=== PATIENT | male | born 1975 | race Caucasian/White ===

== ENCOUNTER → 2020-09-25 12:35 | Outpatient (BNVA) | payer SELFPAY | PROVIDERS: PCP Internal Medicine; Visit Provider Internal Medicine | DX: Z02.79 Encounter for issue of other medical certificate (principal) ==

== ENCOUNTER 2021-04-07 10:18 | Emergency (ER) | payer OTHER, SELFPAY ==
[2021-04-07 11:03] VITALS: BP 129/93; PULSE 95; RESP 18; TEMP 36.5; O2SAT 98; BMI 39.9
[2021-04-07] MEDS: predniSONE 20 MG TABLET 60 MG PO (12:37)
[2021-04-07] MEDS: Ketorolac Tromethamine 60 MG/2 ML VIAL IM (12:38)
--- NOTE | 2021-04-07 13:08 | ED.BACK ---
HPI - Back Pain/Injury General Chief Complaint: Back Pain/Injury Stated Complaint: Back pain Time Seen by Provider: 04/07/21 12:25 Source: patient Mode of arrival: ambulatory Limitations: no limitations History of Present Illness HPI Narrative: Patient presents to ED for low back pain since injury 2019. Patient states history of back fusion surgery with rods. Patient was informed last year he will need another surgery for possible laminectomy of his spine but due to his job worker's Comp figthing his insurance and would not approve of surgery which was proven that he needed for his spine. Patient states pain since thanksgiving. Patient states during thanksgiving while he was standing he had back pain that was so severe causes leg to give out and he fell to the ground. Patient states since incident he has been walking normally but with pain. Patient denies any urinary or bowel incontinence. Patient states no dysuria, nausea, hematuria, vomiting, flank pain, fever, or chills. Patient states no new trauma. Patient requesting pain medication. Patient states history of disc herniation/bulging. Patient states due to workman comp issues with his insurance he has not been given any pain medication. Patient states no relief with Tylenol. Related Data Previous Rx's Medication Instructions Recorded gabapentin 300 mg capsule 300 mg PO TID 7 Days #21 cap 04/07/21 ketorolac 10 mg tablet 10 mg PO QID PRN 5 Days #20 tab 04/07/21 oxycodone-acetaminophen 5 mg-325 1 tab PO TID PRN #9 tab 04/07/21 mg tablet (Percocet) prednisone 20 mg tablet 60 mg PO DAILY 5 Days #15 tab 04/07/21 Allergies Allergy/AdvReac Type Severity Reaction Status Date / Time No Known Allergies Allergy Unverified 01/10/20 19:37 [No Known Allergies*] Review of Systems Review of Systems: Yes all other systems are reviewed and are negative Constitutional: Constitutional: Reports as per HPI and Reports no additional constitutional complaints Eyes: Eyes: Reports as per HPI and Reports no additional eye complaints ENT: Reports system reviewed and no additional complaints, except as documented and Reports as per HPI Cardiovascular: Cardiovascular: Reports as per HPI and Reports no additional cardiovascular complaints Respiratory: Respiratory: Reports as per HPI and Reports no additional respiratory complaints Gastrointestinal: Gastrointestinal: Reports as per HPI and Reports no additional gastrointestinal complaints Genitourinary: Genitourinary: Reports no additional male genitourinary complaints and Reports as per HPI Musculoskeletal: Musculoskeletal: Reports no additional musculoskeletal complaints, Reports as per HPI and Reports back pain Neurologic: Reports system reviewed and no additional complaints, except as documented and Reports as per HPI Psychiatric: Psychiatric: Reports no additional psychiatric complaints and Reports as per HPI [facility] Social History Social History Advance Directives: No Advance Directives Information Provided: Yes Physical Exam Vital Signs: Vital Signs: Last Vital Signs Temp 97.8 F 04/07/21 13:26 Pulse 92 04/07/21 13:26 Resp 18 04/07/21 13:26 BP 130/88 04/07/21 13:26 Pulse Ox 98 04/07/21 13:26 BMI result Body Mass Index 39.9 Const: General: cooperative, healthy appearing, comfortable, no acute distress, well developed, alert, awake and Physically active Orientation/consciousness: patient oriented x3 HENMT: Head: Yes normal to inspection, Yes No palpable skull fracture present, Yes normocephalic, Yes atraumatic and No abrasion Eyes: General: appearance normal, both eyes and all related structures Neck: Neck: Yes normal visual inspection, Yes full ROM, Yes no lymphadenopathy, Yes no meningeal signs, Yes trachea midline, Yes supple, No anterior neck swelling and No tender Chest: Chest palpation & inspection: normal inspection of the chest and normal palpation of entire chest wall Resp: Effort & Inspection: normal respiratory effort and able to speak in complete sentences Auscultation: clear to auscultation bilaterally Cardio: Jugular venous distension: no JVD Heart sounds: S1 normal heart sound present and S2 normal heart sound present GI: Inspection: Yes normal to inspection and No abdominal wall ecchymosis Palpation (GI): Soft to palpation, not firm, nontender, no guarding and not rigid : General: No CVA tenderness and Yes no CVA tenderness Back/Spine/Pelvis: Back: no CVA tenderness, No CVA tenderness and back tenderness (L5/S1. Negative for any deformity or crepitus) Skin: General skin exam: no rashes or lesions noted and elasticity normal Neuro: General: patient oriented x3, gait normal, no meningeal signs and CN's II-XI intact bilaterally Cranial nerves: Yes CN's II-XII intact bilaterally Extrem: General: Yes normal to inspection and Yes full ROM Psych: Appearance: grossly normal, well kempt and not disheveled Course Course Course Narrative: Patient walking around in his room on his own. Patient given Toradol and prednisone. Reevaluation(s) Reevaluation #1: Patient will be discharged with pain medications. Patient informed to follow-up with primary care provider to see if they could fix worker's comp insurance issues to approve of surgery for his spine. Presently not suspecting any cord compression. Patient denies any HIV, hepatitis-C, IV drug use. Not suspect epidural abscess. Patient given referral to [facility] to see if they could help with insurance issues to approve surgery Time: 13:14 MDM - Back Pain/Injury MDM Narrative Medical decision making narrative: Lumbar radiculopathy, chronic back Discharge Plan Discharge Clinical Impression: Lumbar radiculopathy, Chronic back pain Patient Disposition: Home, Self-Care Instructions: Lumbar Radiculopathy (ED), Chronic Back Pain (DC) Additional Instructions: Recommend primary care provider to work patient's insurance to fix worker's comp issue so patient could could have spinal surgery. Meantime primary care provider should refer patient to physical therapy or pain management. Also primary care provider should order repeat MRI if indicated. Return to the ED for any urinary/bowel incontinence, severe back pain, paralysis of lower extremity, tingling of lower extremity, nausea, vomiting, flank pain, fever, chills, dysuria, hematuria, or any other concerning symptoms. Prescriptions: New oxycodone-acetaminophen [Percocet] 5-325 mg tablet 1 tab PO TID PRN (Reason: pain) Qty: 9 RF: 0 prednisone 20 mg tablet 60 mg PO DAILY 5 Days Qty: 15 RF: 0 ketorolac 10 mg tablet 10 mg PO QID PRN (Reason: pain) 5 Days Qty: 20 RF: 0 gabapentin 300 mg capsule 300 mg PO TID 7 Days Qty: 21 RF: 0 [facility]errals: [facility] - 2 days (Chronic back pain due to work injury in 2019. Back pain caused leg to give out and caused him to fall during thanksgiving. Patient has worker's compensation issue which is delaying his surgery.) Interventions: ED Discharge Assessment Last Done: 04/07/21 13:59 Discharge Date/Time: 04/07/21 14:00 Print Language: Swazi
[2021-04-07 13:26] VITALS: BP 130/88; PULSE 92; RESP 18; TEMP 36.6; O2SAT 98
== END 2021-04-07 14:00 | disposition home or self-care (01) ==
PROVIDERS: Emergency Provider Emergency Medicine; PCP Internal Medicine
DX: Z04.2 Encounter for examination and observation following work accident (principal); M54.16 Radiculopathy, lumbar region; M54.50 Low back pain, unspecified
CPT/HCPCS: 96372; 99284; J1885

== ENCOUNTER 2021-04-14 14:24 | Emergency (ER) | payer MEDICAID, SELFPAY ==
--- NOTE | ~2021-04-14 | CT_ITS ---
EXAMINATION: CT ABDOMEN AND PELVIS WITH CONTRAST CLINICAL INFORMATION: GI bleed. COMPARISON: None. TECHNIQUE: Multidetector volumetric images were obtained from the superior aspect of the liver through the pubic symphysis following administration 85 mL of Omnipaque 350 intravenous contrast. Sagittal and coronal reformatted images were obtained on the technologist's workstation. Oral contrast: No This CT examination was performed using dose optimization techniques as appropriate, variously including the following: *Automated exposure control *Adjustment of mA and/or kV according to patient size (this includes techniques or standardized protocols for targeted exams where dose is matched to indication/reason for exam; i.e. extremities or head) *Use of iterative reconstruction technique DLP: 1247 mGy-cm FINDINGS: LUNG BASES: No focal airspace opacities or pleural effusions. LIVER, GALLBLADDER, AND BILIARY TREE: There is significantly decreased attenuation of the liver parenchyma when compared to the attenuation of the spleen suggesting the presence of hepatic steatosis. Otherwise, the liver is normal in size and shape without focal abnormalities. The gallbladder is unremarkable with no evidence of radiopaque gallstones, gallbladder wall thickening, or obvious pericholecystic inflammatory changes. PANCREAS: Unremarkable. SPLEEN: Unremarkable. ADRENAL GLANDS: Unremarkable. KIDNEYS AND URETERS: The kidneys are normal in size, shape, and attenuation. No hydronephrosis, hydroureter, or calculi seen. No perinephric stranding. BLADDER: Unremarkable. GASTROINTESTINAL TRACT: The stomach and small bowel are nondilated. No active inflammatory bowel changes or evidence of obstruction. Normal appendix. No definite pooling of contrast to suggest the presence of a GI bleeding. No retroperitoneal hematomas. ABDOMINAL WALL: No significant hernia is appreciated. LYMPH NODES: No lymphadenopathy by size criteria. VASCULAR: Mild atherosclerotic disease. The abdominal aorta is of normal diameter. PELVIC VISCERA: Unremarkable. OSSEOUS STRUCTURES: No acute or suspicious osseous abnormalities. Intact posterior fusion hardware and interdisc spacer at L3-L4. CT/CT abdomen pelvis w con IMPRESSION: No acute intra-abdominal or pelvic abnormalities. Specifically, there is no definite pooling of contrast within the lumen of the bowel to suspect a gastrointestinal bleed. Although, the entirety of the small bowel and distal colon are under distended which limits assessment of their lumen and wall and if indicated correlation with endoscopy should be obtained. Hepatic steatosis.
[2021-04-14 15:26] VITALS: BP 151/87; PULSE 87; RESP 16; TEMP 36.9; O2SAT 97; BMI 39.9
[2021-04-14 15:43] LABS: MANUAL DIFF FLAG NO
[2021-04-14 15:50] LABS: Basophils Percent Auto 0.5 % (0-2); Eosinophils Absolute Auto 0.1 X10*3/uL (0.0-0.4); Eosinophils Percent Auto 1.4 % (0-4); Hemoglobin 15.1 g/dl (14.0-18.0); Imm Gran Abs Auto 0.03 X10*3/uL (0.00-0.03); Imm Gran Pct Auto 0.3 % (0.0-0.4); Lymphocytes Absolute Auto 1.8 X10*3/uL (1.2-4.9); Lymphocytes Percent Auto 20.1 % (20-40); Mean Corpuscular HGB Conc 33.6 g/dl (31.0-36.0); Mean Corpuscular Hemoglobin 32.1 pg (27.0-33.0); Mean Corpuscular Volume 95.5 fL (80.0-98.0); Mean Platelet Volume 9.6 fL (9.4-12.4); Monocytes Absolute Auto 0.7 X10*3/uL (0.1-1.2); Monocytes Percent Auto 7.9 % (2-11); Neutrophils Absolute Auto 6.1 x10*3/uL (2.0-8.3); Neutrophils Percent Auto 69.8 % (45-73); Platelet Count 180 X10*3/uL (160-400); Red Blood Count 4.71 X10*6/uL (4.60-5.80); Red Cell Distribution Width 13.5 % (11.0-16.0); White Blood Count 8.7 X10*3/uL (4.8-10.8)
[2021-04-14 16:07] LABS: Alanine Aminotransferase 76 U/L (0-40); Albumin Level 4.4 g/dL (3.5-5.0); Alkaline Phosphatase 53 U/L (39-117); Anion Gap 13 (12-20); Aspartate Amino Transferase 37 U/L (5-37); Bilirubin Direct 0.2 mg/dL (0.0-0.5); Bilirubin Total 0.6 mg/dL (0.0-1.0); Blood Urea Nitrogen 23 mg/dL (9-16); Calcium 10.2 mg/dL (8.4-10.2); Carbon Dioxide 27 mmol/L (22-29); Chloride 103 mmol/L (96-108); Creatinine Clr Calc Pharmacy 128.8; Estimated Glomerular Filt Rate > 60; Glucose Random 130 mg/dL (60-115); Potassium 4.8 mmol/L (3.3-5.1); Sodium 138 mmol/L (135-145); Total Protein 7.3 g/dL (6.5-8.0)
--- NOTE | 2021-04-14 19:49 | ED.GIBLEED ---
HPI - GI Bleed General Chief complaint: GI Bleed Stated complaint: Rectal bleed Source: patient Mode of arrival: ambulatory Limitations: no limitations History of Present Illness HPI Narrative: 46-year-old male presents with bright red blood per rectum and abdominal pain for the past day. Does not report constipation or melena stools. Does not report any other symptoms at this time. MD complaint: blood on toilet paper Onset (ago): day(s) (1) Pain Consistency: constant Severity: moderate Relieving factors: none Exacerbating factors: bowel movement and movement Associated symptoms: abdominal pain Treatments Prior to Arrival: none Related Data Previous Rx's Medication Instructions Recorded gabapentin 300 mg capsule 300 mg PO TID 7 Days #21 cap 04/07/21 ketorolac 10 mg tablet 10 mg PO QID PRN 5 Days #20 tab 04/07/21 oxycodone-acetaminophen 5 mg-325 1 tab PO TID PRN #9 tab 04/07/21 mg tablet (Percocet) prednisone 20 mg tablet 60 mg PO DAILY 5 Days #15 tab 04/07/21 Allergies Allergy/AdvReac Type Severity Reaction Status Date / Time No Known Allergies Allergy Unverified 01/10/20 19:37 [No Known Allergies*] Review of Systems Review of Systems: Constitutional: No Fever, No Chills ENT/Mouth: No Ear Pain, No Hoarseness, No sore throat Eyes: No Eye Pain, No Swelling, No Redness, No Foreign Body Cardiovascular: No Chest Pain, No SOB Respiratory: No Cough, No Dyspnea Gastrointestinal: No Nausea, No Vomiting, No Diarrhea, positive abdominal Pain, positive hematochezia Genitourinary: No Dysuria, No Hematuria Musculoskeletal: positive chronic back pain, No Myalgias, No Joint Swelling Skin: No Skin lacerations, No rash Neuro: No Weakness, No Numbness, No Paresthesias, No Loss of Consciousness, No Dizziness, No Headache Psych: No Anxiety/Panic, No Depression Heme/Lymph: no easy bruising, no Lymphadenopathy Endocrine: No Polyuria, No Polydipsia Yes all other systems are reviewed and are negative [facility] Past Medical History Attestation statement: The following information was validated with the patient. Source: old records reviewed Medical History Gout Social History Social History Advance Directives: No Advance Directives Information Provided: Yes Physical Exam Vital Signs: Vital Signs: Last Vital Signs Temp 98.5 F 04/14/21 15:26 Pulse 81 04/14/21 21:19 Resp 20 04/14/21 21:19 BP 131/87 04/14/21 21:19 Pulse Ox 97 04/14/21 21:19 BMI result Body Mass Index 39.9 Appearance: Alert. Oriented X3. No acute distress. Eyes: Pupils equal, round and reactive to light. Sclera nonicteric. ENT: Pharynx normal. Moist mucous membranes. Neck: Normal inspection. Neck supple. CVS: Normal heart rate and rhythm. Pulses normal. Respiratory: No respiratory distress. Breath sounds normal. Abdomen: Soft and diffusely tender without rigidity or rebound. Obese. Skin: Skin warm and dry. Normal skin color. Normal skin turgor. Extremities: No lower extremity edema. Gait well-balanced well coordinated. Brisk capillary refill to all extremities. Neuro: No motor deficit. No sensory deficit. Cranial nerves 2-12 intact. Course Course Course Narrative: 46-year-old male presents with abdominal pain and bright red blood per rectum. States that he was given prednisone and oxycodone last week and noted blood in his stool shortly after. He is being treated for chronic back pain. Does not report any constipation. Denies family history of colon cancer. Does not report any melena or abnormal weight loss, states have weight gain. No history of PUD but does report heavy NSAID use because of chronic back pain. Rectal exam completed, does have external and internal hemorrhoids. No fissures noted. Good rectal tone. 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 Will order CT abdomen pelvis with contrast. BUN is elevated at 23. No prior lab values. 9:[address] scan abdomen pelvis negative for acute findings requiring emergent intervention. Will have patient follow up with Gastroenterology as an outpatient. Patient verbalized understanding of and agrees plan of care discharge home. MDM - GI Bleed Differential Diagnosis Differential diagnosis: Likely hemorrhoids, esophageal varices, gastritis, Upper gastrointestinal hemorrhage, hematochezia, melena and anal fissure Medical Records Attestation: I reviewed the patient's medical records. Lab Data Attestation: I reviewed the patient's lab results. Result diagrams: 04/14/21 15:36 04/14/21 15:36 Labs: Lab Results 04/14/21 04/14/21 04/14/21 Range/Units 15:36 15:36 21:35 WBC 8.7 (4.8-10.8) X10*3/uL RBC 4.71 (4.60-5.80) X10*6/uL Hgb 15.1 (14.0-18.0) g/dl Hct 45.0 (42.0-52.0) % MCV 95.5 (80.0-98.0) fL MCH 32.1 (27.0-33.0) pg MCHC 33.6 (31.0-36.0) g/dl RDW 13.5 (11.0-16.0) % Plt Count 180 (160-400) X10*3/uL MPV 9.6 (9.4-12.4) fL Immature Gran % (Auto) 0.3 (0.0-0.4) % Neut % (Auto) 69.8 (45-73) % Lymph % (Auto) 20.1 (20-40) % [place] % (Auto) 7.9 (2-11) % Eos % (Auto) 1.4 (0-4) % Baso % (Auto) 0.5 (0-2) % Lymph # (Auto) 1.8 (1.2-4.9) X10*3/uL [place] # (Auto) 0.7 (0.1-1.2) X10*3/uL Eos # (Auto) 0.1 (0.0-0.4) X10*3/uL Baso # (Auto) 0.0 (0.0-0.2) X10*3/uL Abs Immat Gran (auto) 0.03 (0.00-0.03) X10*3/uL Absolute Neuts (auto) 6.1 (2.0-8.3) x10*3/uL Absolute Nucleated RBC 0.000 (0.0-0.012) X10*3/uL Nucleated RBC % (auto) 0.0 (0.0-0.2) /100WBC Sodium 138 (135-145) mmol/L Potassium 4.8 (3.3-5.1) mmol/L Chloride 103 (96-108) mmol/L Carbon Dioxide 27 (22-29) mmol/L Anion Gap 13 (12-20) BUN 23 H (9-16) mg/dL Creatinine 1.09 (0.5-1.4) mg/dL Estim Creat Clear Calc 128.8 Estimated GFR > 60 Random Glucose 130 H (60-115) mg/dL Calcium 10.2 (8.4-10.2) mg/dL Total Bilirubin 0.6 (0.0-1.0) mg/dL Direct Bilirubin 0.2 (0.0-0.5) mg/dL AST 37 (5-37) U/L ALT 76 H (0-40) U/L Alkaline Phosphatase 53 (39-117) U/L Total Protein 7.3 (6.5-8.0) g/dL Albumin 4.4 (3.5-5.0) g/dL Stool Occult Blood POSITIVE (NEGATIVE) Imaging Data CT abdomen pelvis with contrast: Attestation: I personally reviewed and interpreted this imaging study as follows: Radiologist's impression: EXAMINATION: CT ABDOMEN AND PELVIS WITH CONTRAST? CLINICAL INFORMATION: GI bleed.? COMPARISON: None.? TECHNIQUE: Multidetector volumetric images were obtained from the superior aspect of the liver through the pubic symphysis following administration 85 mL of Omnipaque 350 intravenous contrast. Sagittal and coronal reformatted images were obtained on the technologist's workstation.? Oral contrast: No This CT examination was performed using dose optimization techniques as appropriate, variously including the following: *Automated exposure control *Adjustment of mA and/or kV according to patient size (this includes techniques or standardized protocols for targeted exams where dose is matched to indication/reason for exam; i.e. extremities or head) *Use of iterative reconstruction technique DLP: 1247 mGy-cm FINDINGS: LUNG BASES: No focal airspace opacities or pleural effusions.? LIVER, GALLBLADDER, AND BILIARY TREE: There is significantly decreased attenuation of the liver parenchyma when compared to the attenuation of the spleen suggesting the presence of hepatic steatosis. Otherwise, the liver is normal in size and shape without focal abnormalities. The gallbladder is unremarkable with no evidence of radiopaque gallstones, gallbladder wall thickening, or obvious pericholecystic inflammatory changes.? PANCREAS: Unremarkable.? SPLEEN: Unremarkable.? ADRENAL GLANDS: Unremarkable.? KIDNEYS AND URETERS: The kidneys are normal in size, shape, and attenuation. No hydronephrosis, hydroureter, or calculi seen. No perinephric stranding. ? BLADDER: Unremarkable.? GASTROINTESTINAL TRACT: The stomach and small bowel are nondilated. No active inflammatory bowel changes or evidence of obstruction. Normal appendix. No definite pooling of contrast to suggest the presence of a GI bleeding. No retroperitoneal hematomas.? ABDOMINAL WALL: No significant hernia is appreciated.? LYMPH NODES: No lymphadenopathy by size criteria. VASCULAR: Mild atherosclerotic disease. The abdominal aorta is of normal diameter. PELVIC VISCERA: Unremarkable.? OSSEOUS STRUCTURES: No acute or suspicious osseous abnormalities. Intact posterior fusion hardware and interdisc spacer at L3-L4.? CT/CT abdomen pelvis w con IMPRESSION: No acute intra-abdominal or pelvic abnormalities. Specifically, there is no definite pooling of contrast within the lumen of the bowel to suspect a gastrointestinal bleed. Although, the entirety of the small bowel and distal colon are under distended which limits assessment of their lumen and wall and if indicated correlation with endoscopy should be obtained. ? Hepatic steatosis. Discharge Plan Discharge Clinical Impression: Hematochezia Hemorrhoids Qualifiers: Hemorrhoid type: unspecified Qualified Code(s): K64.9 - Unspecified hemorrhoids Patient Disposition: Home, Self-Care Instructions: Hemorrhoids (ED), Rectal Bleeding (ED) Additional Instructions: You were evaluated for bright red blood per rectum. CT scan of abdomen and pelvis with contrast is negative for acute findings requiring emergent intervention. You must follow-up with Gastroenterology for further investigation of rectal bleeding. I referred you to Dr. Roberts. Please call and request an appointment. Please keep your appointment with primary care tomorrow. Please update them about your bright red blood per rectum and your referral to Gastroenterology. You do have internal and external hemorrhoids. You may consider taking stool softeners while on Percocet. Please discontinue use of NSAIDs ([id number]) and naproxen (Aleve). Thank you for choosing this emergency department for evaluation. Please follow-up with primary care physician as needed. Return to the emergency department for any new, concerning, or worsening symptoms. Prescriptions: No Action oxycodone-acetaminophen [Percocet] 5-325 mg tablet 1 tab PO TID PRN (Reason: pain) Qty: 9 RF: 0 prednisone 20 mg tablet 60 mg PO DAILY 5 Days Qty: 15 RF: 0 ketorolac 10 mg tablet 10 mg PO QID PRN (Reason: pain) 5 Days Qty: 20 RF: 0 gabapentin 300 mg capsule 300 mg PO TID 7 Days Qty: 21 RF: 0 Referrals: Brittany Roberts MD [Physician] - 2 days (Bright red blood per rectum.) Interventions: ED Discharge Assessment Last Done: 04/14/21 21:42 Discharge Date/Time: 04/14/21 21:44
--- NOTE | 2021-04-14 19:56 | PC.NURSE ---
ED provider at bed side. This RN present in the room during rectal exam. Stool sample collected from PT.
[2021-04-14 20:15] VITALS: BP 144/90; PULSE 83; RESP 16; O2SAT 98
[2021-04-14] MEDS: iohexoL 350 MG/ML 100 ML INFUS..BTL IV (20:27)
[2021-04-14 21:19] VITALS: BP 131/87; PULSE 81; RESP 20; O2SAT 97
[2021-04-14 21:42] LABS: OBS Int Ctl Valid YES; OBS1 POSITIVE (NEGATIVE)
== END 2021-04-14 21:44 | disposition home or self-care (01) ==
PROVIDERS: Emergency Medicine; Nurse Practitioner Family; Emergency Provider Emergency Medicine; PCP Internal Medicine
DX: K92.1 Melena (principal); K64.4 Residual hemorrhoidal skin tags; K64.8 Other hemorrhoids
CPT/HCPCS: 36415; 74177; 80048; 80076; 82272; 85025; 99284; Q9967

== ENCOUNTER → 2021-05-22 12:14 | Outpatient (BNVA) | payer MEDICAID, SELFPAY | PROVIDERS: PCP Internal Medicine; Visit Provider Nurse Practitioner | DX: K64.4 Residual hemorrhoidal skin tags (principal); K64.8 Other hemorrhoids | CPT/HCPCS: 99202 ==

== ENCOUNTER 2021-06-29 10:15 | Emergency (ER) | payer OTHER, SELFPAY ==
[2021-06-29 10:28] VITALS: BP 155/84; PULSE 105; RESP 18; TEMP 36.6; O2SAT 98; BMI 39.9
--- NOTE | 2021-06-29 11:23 | ED_ITS ---
HPI - Back Pain/Injury General Chief Complaint: Back Pain/Injury Stated Complaint: back pain/INJ Time Seen by Provider: 06/29/21 11:16 Source: patient Mode of arrival: ambulatory Limitations: no limitations History of Present Illness HPI Narrative: 46-year-old male with a past medical history of chronic back pain with prior back fusion surgery with rods since 2019 presenting to the ED with complaints of acute on chronic back pain over the past week worse today. Reports that he has been taking [id number] Motrin Tylenol no symptomatic relief. He is currently in court fighting work[employer]iyoo's comp to approve his surgery and this has been happening for the past few months therefore he is no longer in pain management due to he is in court For his approval for his back surgery that he reports he needs. He denies any new falls or trauma. He denies any fevers, chills, dizziness, headaches, neck pain /stiffness, trouble swallowing or breathing, chest pain or shortness of breath, dyspnea on exertion, orthopnea, palpitations, nausea/ vomiting/ diarrhea constipation, black or bloody stools, urinary or bowel incontinence or retention, dysuria, hematuria, abdominal pain, penile discharge, history of IV drug use or any other symptoms complaints or concerns at this time. MD elicited complaint: back pain Pertinent past history: prior back pain Onset (ago): week(s) (1) Timing: constant and progressively worsening Severity: severe Pain scale (0-10): 10 Similar Symptoms Previously: Yes Quality: burning and aching Location: lumbar spine Radiation: right leg below the knee Exacerbating factors: movement, supine positioning, sitting upright, walking and lifting Relieving factors: none Associated symptoms: denies other symptoms Treatments prior to arrival: heat therapy, NSAIDS and acetaminophen Work related injury: Yes Related Data Previous Rx's Medication Instructions Recorded gabapentin 300 mg capsule 300 mg PO TID 7 Days #21 cap 04/07/21 ketorolac 10 mg tablet 10 mg PO QID PRN 5 Days #20 tab 04/07/21 oxycodone-acetaminophen 5 mg-325 1 tab PO TID PRN #9 tab 04/07/21 mg tablet (Percocet) prednisone 20 mg tablet 60 mg PO DAILY 5 Days #15 tab 04/07/21 peg 3350-electrolytes 236 240 ml PO Q10M 1 Days #4000 ml 05/22/21 gram-22.74 gram-6.74 gram-5.86 gram solution (Golytely) acetaminophen 500 mg tablet 1,000 mg PO QID PRN #14 tab 06/29/21 (Tylenol Extra Strength) cyclobenzaprine 10 mg tablet 10 mg PO Q8H PRN #14 tab 06/29/21 ketorolac 10 mg tablet 10 mg PO Q8H PRN #10 tab 06/29/21 lidocaine 5 % topical patch 1 patch TOPICAL DAILY #15 ea 06/29/21 (Lidoderm) oxycodone 5 mg tablet 5 mg PO Q6H PRN #14 tab 06/29/21 prednisone 20 mg tablet 40 mg PO DAILY 5 Days #10 tab 06/29/21 Allergies Allergy/AdvReac Type Severity Reaction Status Date / Time No Known Allergies Allergy Unverified 05/22/21 12:45 [No Known Allergies*] Review of Systems Review of Systems: Constitutional : No trauma, No Weight loss, No Fever, No Chills, ENT/Mouth : No Hearing loss, No Ear Pain, No Nasal Congestion, No Sinus Pain, No Hoarseness, No sore throat, No Rhinorrhea, No Swallowing Difficulty Cardiovascular : No Chest Pain, No SOB Respiratory : No Cough, No Dyspnea Gastrointestinal : No Nausea, No Vomiting, No Diarrhea, No abdominal Pain, No Hematochezia, No Melena Genitourinary : No Dysuria, No Urinary Frequency, No Hematuria, No Urinary or Bowel Incontinence/retention Musculoskeletal : + Back pain, No neck pain, No joint stiffness, No joint swelling Skin : No Skin Lesions, No rash or signs of infection Neuro : No Weakness, + radiation,+ RLE Numbness WHICH IS CHRONIC PER PATIENT, No headache, no loss of bowel or bladder incontinence, no saddle anesthesia, Focal weakness Denies history of IV drug usage. Yes all other systems are reviewed and are negative [facility] Past Medical History Attestation statement: The following information was validated with the patient. Medical History Gout Social History Social History Advance Directives: No Advance Directives Information Provided: No Physical Exam Vital Signs: Vital Signs: Last Vital Signs Temp 98 F 06/29/21 10:28 Pulse 105 H 06/29/21 10:28 Resp 18 06/29/21 10:28 BP 155/84 H 06/29/21 10:28 Pulse Ox 98 06/29/21 10:28 BMI result Body Mass Index 39.9 vital signs have been reviewed as normal and appeared to be correct. Blood pressure normal. Heart rate normal. Respiration rate normal. Temperature normal. Oxygen saturation normal. Appearance: Alert. Oriented X3. No acute distress. Head: Normal external exam. Normocephalic. Atraumatic. No Steele signs noted. No raccoon eyes noted Eyes: PERRLA. EOMI. Conjunctiva and sclera normal. Eyelids normal. ENT: EAC normal. TM's Normal. Pharynx normal. Uvula midline. Moist mucous membranes. No trismus noted. No drooling noted. No muffled voice noted. Neck: Normal inspection. Neck supple. FROM. No adenopathy. Thyroid Normal. No meningeal signs. No neck mass noted. CVS: Normal heart rate and rhythm. Heart sound normal. No murmurs noted. Pulses normal throughout. Respiratory: No respiratory distress. Painless inspiration. Breath sounds normal. No wheezes/rales/rhonchi noted. Chest nontender. No accessory muscle usage noted or decreased air movement noted. Abdomen: Soft and nontender. Bowel sounds normal in all 4 quadrants. No distention noted. No organomegaly noted. No visible injury noted. Back: No CVA tenderness. Full range of motion noted. No obvious deformities, or edema. Mild para-spinal muscular tenderness from lumbar region to coccyx. Full ROM in back and lower extremities. 5/5 strength hip extension/flexion, abduction, adduction. Mild Lumbar pain with hip flexion against resistance. Straight leg raise test negative on right; Straight leg raise test negative on left; Reflexes normal ankle and knee bilaterally; EHL motor strength normal bilaterally. No rashes/lesion/induration/fluctuance or signs infection noted. Skin: Skin warm and dry. Normal skin color. Normal skin turgor. No rashes/lesions/lacerations noted. Extremities: No lower extremity edema. Extremities exhibit normal range of motion. Extremities nontender. Neuro: Oriented X 3. No motor deficit. No sensory deficit. Reflexes normal. Patient has a normal steady gait. Course Course Course Narrative: Pt c likely muscular pain, but could be herniated disc. Neuro exam shows no d eficits. Not c/w AAA/epidural abscess/dissection.No high risk Hx (Incont, fever, immunosupp, recent surgery/LP, coag, signif trauma, wt loss, puls mass, hx/o Ca, TB, or IVDU) to warrant MRI/CT today. Not c/w Pyelo/UTI/kidney stone/spinal fx. Not cauda equina syndrome. Imaging not currently indicated. DC c meds and f/u. MDM - Back Pain/Injury Medical Records Attestation: I reviewed the patient's medical records. Discharge Plan Discharge Clinical Impression: Chronic back pain Patient Disposition: Home, Self-Care Instructions: Chronic Back Pain (DC), Heat Pack Application (ED) Additional Instructions: You were prescribed Toradol /ketorolac today that is an NSAID such as like a Motrin therefore you can have rectal bleeding with this if you have had in the past. Watch out for this. Take only as prescribed. And do not mix with Motrin if you are taking the Toradol/ ketorolac. Prescriptions: New prednisone 20 mg tablet 40 mg PO DAILY 5 Days Qty: 10 0RF acetaminophen [Tylenol Extra Strength] 500 mg tablet 1,000 mg PO QID PRN (Reason: fever or pain) Qty: 14 0RF ketorolac 10 mg tablet 10 mg PO Q8H PRN (Reason: pain) Qty: 10 0RF Rx Instructions: Given 1st dose in the ED lidocaine [Lidoderm] 5 % adhesive patch,medicated 1 patch topical DAILY Qty: 15 0RF Rx Instructions: leave on most painful area for up to 12 hrs. May be substituted oxycodone 5 mg tablet 5 mg PO Q6H PRN (Reason: pain) Qty: 14 0RF cyclobenzaprine 10 mg tablet 10 mg PO Q8H PRN (Reason: Muscle spasm) Qty: 14 0RF No Action oxycodone-acetaminophen [Percocet] 5-325 mg tablet 1 tab PO TID PRN (Reason: pain) Qty: 9 0RF Rx Instructions: side effect is drowsiness. Do not take at work or while driving. prednisone 20 mg tablet 60 mg PO DAILY 5 Days Qty: 15 0RF ketorolac 10 mg tablet 10 mg PO QID PRN (Reason: pain) 5 Days Qty: 20 0RF Rx Instructions: patient recieved toradol 60mh IM in the ED gabapentin 300 mg capsule 300 mg PO TID 7 Days Qty: 21 0RF peg 3350-electrolytes [Golytely] 236-22.74-6.74 -5.86 gram recon soln 240 ml PO Q10M 1 Days Qty: 4000 0RF Rx Instructions: until fecal effluent is clear; do not exceed a total volume of 2,000 mL Referrals: Johnnie Knight MD [Primary Care Provider] - 2 days Stand Alone Forms: Work/School Release Print Language: Bulgarian
[2021-06-29] MEDS: Ketorolac Tromethamine 60 MG/2 ML VIAL IM (11:37)
== END 2021-06-29 11:53 | disposition home or self-care (01) ==
LOC: HO.ED 11:29
PROVIDERS: Emergency Provider Emergency Medicine; PCP Internal Medicine
DX: Z04.2 Encounter for examination and observation following work accident (principal); G89.29 Other chronic pain; M54.50 Low back pain, unspecified
CPT/HCPCS: 96372; 99284; J1885

== ENCOUNTER → 2021-09-15 13:59 | Outpatient (BNVA) | payer SELFPAY | PROVIDERS: PCP Internal Medicine; Visit Provider Physician Assistant Medical | DX: Z02.79 Encounter for issue of other medical certificate (principal) ==

== ENCOUNTER 2022-03-12 17:29 | Emergency (ER) | payer OTHER, MEDICAID, SELFPAY ==
[2022-03-12 18:24] VITALS: BP 142/95; PULSE 90; RESP 16; TEMP 36.6; O2SAT 98; BMI 38.7
--- NOTE | 2022-03-12 18:24 | ED.BACK ---
HPI - Back Pain/Injury General Chief Complaint: Back Pain/Injury Stated Complaint: Low back pain Time Seen by Provider: 03/12/22 18:34 Source: patient Mode of arrival: ambulatory History of Present Illness HPI Narrative: 47-year-old male with a past medical history of gout, lumbar disc disease s/p surgery presenting to the ED complaining of acute on chronic low back pain with bilateral lower extremity numbness/tingling. Denies taking anything for pain at present. States will be seeing a specialist soon to be evaluated for cortisone injections. Denies fever, IVDA, urinary incontinence/retention, hematuria, flank pain MD elicited complaint: back pain Related Data Previous Rx's Medication Instructions Recorded gabapentin 300 mg capsule 300 mg PO TID 7 days #21 caps 04/07/21 ketorolac 10 mg tablet 10 mg PO QID PRN pain 5 days #20 04/07/21 tabs oxycodone-acetaminophen 5 mg-325 1 tab PO TID PRN pain #9 tabs 04/07/21 mg tablet (Percocet) prednisone 20 mg tablet 60 mg PO DAILY 5 days #15 tabs 04/07/21 peg 3350-electrolytes 236 240 ml PO Q10M 1 day #4,000 mL 05/22/21 gram-22.74 gram-6.74 gram-5.86 gram solution (Golytely) acetaminophen 500 mg tablet 1,000 mg PO QID PRN fever or pain 06/29/21 (Tylenol Extra Strength) #14 tabs cyclobenzaprine 10 mg tablet 10 mg PO Q8H PRN Muscle spasm #14 06/29/21 tabs ketorolac 10 mg tablet 10 mg PO Q8H PRN pain #10 tabs 06/29/21 lidocaine 5 % topical patch 1 patch topical DAILY pain #15 ea 06/29/21 (Lidoderm) oxycodone 5 mg tablet 5 mg PO Q6H PRN pain #14 tabs 06/29/21 prednisone 20 mg tablet 40 mg PO DAILY rash 5 days #10 tabs 06/29/21 acetaminophen 500 mg tablet 500 mg PO Q6H PRN fever or pain 03/12/22 (Tylenol Extra Strength) #14 tabs cyclobenzaprine 5 mg tablet 5 mg PO Q8H PRN pain (scale score 03/12/22 7-10) 5 days #14 tabs ketorolac 10 mg tablet 10 mg PO TID PRN pain 5 days #15 03/12/22 tabs lidocaine 5 % topical patch 1 patch topical DAILY PRN pain #30 03/12/22 (Lidoderm) ea Allergies Allergy/AdvReac Type Severity Reaction Status Date / Time No Known Allergies Allergy Verified 03/12/22 18:27 [No Known Allergies*] Review of Systems Review of Systems: Constitutional: No Weight loss, No Fever, No Chills ENT/Mouth: No Ear Pain, No Nasal Congestion, No sore throat, No Rhinorrhea, No Swallowing Difficulty Cardiovascular: No Chest Pain, No SOB Respiratory: No Cough, No Sputum, No Wheezing Gastrointestinal: No Nausea, No Vomiting, No Diarrhea, No Constipation, No Abdominal pain Genitourinary: No Dysuria, No Urinary Frequency, No Hematuria, No Urinary Incontinence/retention, No Urgency, No Flank Pain Musculoskeletal: + joint pain, No Myalgias, No Joint Swelling Skin: No Skin Lesions, No rash Neuro: No Weakness, + Numbness, + Paresthesias Yes all other systems are reviewed and are negative Constitutional: Constitutional: Reports as per HPI Neurologic: Denies Sensory deficit (Neuro) [facility] Past Medical History Attestation statement: The following information was validated with the patient. Medical History Gout Lumbar degenerative disc disease Sleep apnea Surgical History Hx of spinal fusion Hx of umbilical hernia repair Social History Social History Advance Directives: No Advance Directives Information Provided: No Physical Exam Vital Signs: Vital Signs: Last Vital Signs Temp 97.8 F 03/12/22 18:24 Pulse 90 03/12/22 18:24 Resp 16 03/12/22 18:24 BP 142/95 H 03/12/22 18:24 Pulse Ox 98 03/12/22 18:24 O2 Del Method 03/12/22 18:24 BMI result Body Mass Index 38.7 Const: General: cooperative, healthy appearing and no acute distress Orientation/consciousness: patient oriented x3 Limitations: no limitations HEENT: Head: Yes normal to inspection and Yes atraumatic Ears: hearing grossly normal bilaterally General nose exam: Normal external nose present Face and sinus: Yes normal facial exam Eyes: General: appearance normal, both eyes and all related structures EOM: EOMs intact bilaterally Neck: Neck: Yes normal visual inspection and Yes no meningeal signs Resp: Effort & Inspection: normal respiratory effort and no respiratory distress Cardio: Rate: regular rate Heart sounds: S1 normal heart sound present and S2 normal heart sound present GI: Inspection: Yes normal to inspection : General: Yes no CVA tenderness Back/Spine/Pelvis: Other: No midline thoracic/lumbar spinous tenderness/step-off or deformity. Old surgical scar noted. Pain not reproducible on exam Back: no CVA tenderness Skin: Rashes: no rashes Wounds: no wounds Neuro: Other: Strength intact throughout. No saddle anesthesia. Sensation intact to light touch. Neurovascular intact distally General: patient oriented x3, tone normal, moves all extremities and no meningeal signs Gait exam (Neuro): Normal gait present Motor exam (neuro): 5/5 motor strength present throughout Sensory Exam: No Sensory deficit (Neuro) Extrem: General: Yes normal to inspection MDM - Back Pain/Injury MDM Narrative Medical decision making narrative: 47-year-old male with a past medical history of gout, lumbar disc disease s/p surgery presenting to the ED complaining of acute on chronic low back pain with bilateral lower extremity numbness/tingling. On exam vital signs stable, NAD, nontoxic appearing, no midline spinous tenderness or red flag symptoms. Ambulating with steady gait. Concern for lumbar radiculopathy vs herniated disc vs MSK pain/strain. Low suspicion for cauda equina, cord compression or epidural abscess Plan: IM Toradol, Lidoderm patch, PCP/spine follow-up Differential Diagnosis Differential diagnosis: Likely lumbar radiculopathy, sciatica and strain of lumbar region Medical Records Attestation: I reviewed the patient's medical records. Lab Data Attestation: I reviewed the patient's lab results. Discharge Plan Discharge Clinical Impression: Lumbar radiculopathy Patient Disposition: Home, Self-Care Instructions: Lumbar Radiculopathy (ED) Additional Instructions: Your pain is likely musculoskeletal Flexeril is a muscle relaxer, take at night as it makes you drowsy, do not drive, drink alcohol, or operate machinery while taking it Naproxen as an anti-inflammatory / pain medication, take with food Lidoderm patches are numbing patches, apply to painful area In addition take Tylenol at home If symptoms persist or worsen, pain becomes unbearable, you developed urinary retention or incontinence, or weakness return to the ED Prescriptions: New acetaminophen [Tylenol Extra Strength] 500 mg tablet 500 mg PO Q6H PRN (Reason: fever or pain) Qty: 14 0RF ketorolac 10 mg tablet 10 mg PO TID PRN (Reason: pain) 5 Days Qty: 15 0RF lidocaine [Lidoderm] 5 % adhesive patch,medicated 1 patch topical DAILY MDD remove after 12 hours PRN (Reason: pain) Qty: 30 0RF Rx Instructions: leave on most painful area for up to 12 hrs cyclobenzaprine 5 mg tablet 5 mg PO Q8H PRN (Reason: pain (scale score 7-10)) 5 Days Qty: 14 0RF No Action prednisone 20 mg tablet 40 mg PO DAILY 5 Days Qty: 10 0RF acetaminophen [Tylenol Extra Strength] 500 mg tablet 1,000 mg PO QID PRN (Reason: fever or pain) Qty: 14 0RF ketorolac 10 mg tablet 10 mg PO Q8H PRN (Reason: pain) Qty: 10 0RF Rx Instructions: Given 1st dose in the ED lidocaine [Lidoderm] 5 % adhesive patch,medicated 1 patch topical DAILY Qty: 15 0RF Rx Instructions: leave on most painful area for up to 12 hrs. May be substituted oxycodone 5 mg tablet 5 mg PO Q6H PRN (Reason: pain) Qty: 14 0RF cyclobenzaprine 10 mg tablet 10 mg PO Q8H PRN (Reason: Muscle spasm) Qty: 14 0RF oxycodone-acetaminophen [Percocet] 5-325 mg tablet 1 tab PO TID PRN (Reason: pain) Qty: 9 0RF Rx Instructions: side effect is drowsiness. Do not take at work or while driving. prednisone 20 mg tablet 60 mg PO DAILY 5 Days Qty: 15 0RF ketorolac 10 mg tablet 10 mg PO QID PRN (Reason: pain) 5 Days Qty: 20 0RF Rx Instructions: patient recieved toradol 60mh IM in the ED gabapentin 300 mg capsule 300 mg PO TID 7 Days Qty: 21 0RF peg 3350-electrolytes [Golytely] 236-22.74-6.74 -5.86 gram recon soln 240 ml PO Q10M 1 Days Qty: 4000 0RF Rx Instructions: until fecal effluent is clear; do not exceed a total volume of 2,000 mL Referrals: Johnnie Knight MD [Primary Care Provider] -
[2022-03-12] MEDS: Ketorolac Tromethamine 30 MG/ML VIAL IM (18:43)
[2022-03-12] MEDS: Lidocaine 4 % Patch ADH..PATCH 1 PATCH TRANSDERMA (18:47)
== END 2022-03-12 18:50 | disposition home or self-care (01) ==
PROVIDERS: Emergency Provider Emergency Medicine; PCP Internal Medicine
DX: M54.16 Radiculopathy, lumbar region (principal); Z79.899 Other long term (current) drug therapy
CPT/HCPCS: 96372; 99283; 99284; J1885

== ENCOUNTER 2022-04-21 10:32 | Day surgery (SDC) | payer MEDICAID, SELFPAY ==
[2022-04-21 10:46] VITALS: BMI 39.9
--- NOTE | 2022-04-21 10:46 | P.CONAN_ITS ---
[facility] Active Problems Active Problems: All Active Problems (Updated 04/14/22 @ 15:05 by Kiesha Lara, RN) Morbid obesity (Acute) Lumbar degenerative disc disease (Acute) Lumbar herniated disc (Acute) Umbilical hernia (Acute) OMKAR (obstructive sleep apnea) (Acute) Internal and external bleeding hemorrhoids (Acute) Colon cancer screening (Acute) Past Medical History Medical History Back pain Gout Lumbar degenerative disc disease Obese Sleep apnea Family History Family history of problems with anesthesia: No Surgical History Surgical History History of back surgery Hx of spinal fusion Hx of umbilical hernia repair History of Problems with Anesthesia: No Social History Social History Advance Directives: No Advance Directives Information Provided: Yes Meds Allergies Allergy/AdvReac Type Severity Reaction Status Date / Time No Known Allergies Allergy Verified 04/21/22 10:44 [No Known Allergies*] Home Medications Medication Instructions Recorded Confirmed Last Taken Type allopurinol 100 mg tablet 1 tab PO DAILY 04/14/22 04/14/22 Unknown History allopurinol 300 mg tablet 1 tab PO DAILY 04/14/22 04/14/22 Unknown History Exam Exam Date and Time: April 21, 2022 1046 Airway Mallampati Class: III TM Dist: >3cm Neck ROM: Full Assessment and Plan Assessment Anesthesia Assessment: Anesthesia Plan Discussed and Chart Reviewed Final Anesthetic Review Family History of Problems with Anesthesia: No History of Problems with Anesthesia: No NPO: Yes ASA Class: III Final Preanesthetic Review: No Changes in Pt Med Stat, Meds/Allgs Chart Reviewed, Consent Obtained/Reviewed and Anes Risks/Benef Reviewed Patient Risk: Intermediate Procedure Risk: Low Anesthetic Plan Anesthetic Plan: MAC: Disposition: Standard PACU
[2022-04-21 10:56] VITALS: BP 132/78; PULSE 92; RESP 17; TEMP 37.2; O2SAT 95
[2022-04-21] MEDS: Lactated Ringers 1,000 ML 100 ML IVCONT (11:44)
--- NOTE | 2022-04-21 11:47 | MHC.SHP ---
Pre-Procedural Eval Section A Date of Service: 04/21/22 Section B Chief Complaint: screening Details of Present Illness: no Fh of crc, hx of lung and breast cancer in family Relevant Family History (Specify if Yes): No Relevant Social History: Tobacco Use Present Medications: see Short Stay Collaborative assessment Medical History: Significant History (Back pain Gout Lumbar degenerative disc disease Obese Sleep apnea) History of Previous Operations: Relevant previous surgery/procedure and date(s) (History of back surgery Hx of spinal fusion Hx of umbilical hernia repair) Allergies: Allergies Allergy/AdvReac Type Severity Reaction Status Date / Time No Known Allergies Allergy Verified 04/21/22 10:44 [No Known Allergies*] Review of Systems Sugical H&P ROS: Negative: Constitution, Cardiovascular, Respiratory, Neurological, Psychiatric, Hem-Onc, Allergic/Immunologic, Gastrointestinal, Genitourinary, Musculoskeletal, Integumentary, Endocrine and Eyes/Ears/Nose/Throat Exam Surgical H&P Exam: Normal: HEENT, Normal: Heart, Normal: Lungs, Normal: Extremities, Normal: Abdomen, Normal: Skin and Normal: Neurological Plan Diagnosis/Plan: Unchanged I have reviewed the history and physical and performed a pertinent physical examination on my patient. No changes have occurred unless specified. Time Spent With Patient Time: Total time managing care of this patient today ____ minutes.
--- NOTE | 2022-04-21 11:49 | P.OP_ITS ---
Operative Note Operative Note Date of Service: 04/21/22 Narrative: Operative Information Procedure Description: Colonoscopy Indication: screening Anesthesia: MAC COLONOSCOPY Instrument: Olympus variable stiffness pediatric scope 190L Colonoscopy Monitoring: Vital signs and clinical assessment, continuous EKG monitoring, Pulse oximetry, Carbon Dioxide monitoring and blood pressure monitoring were done throughout the procedure. Colon withdrawal time was 9 minutes. Procedure: The patient was placed in the left lateral decubitis position and pre-procedure medications were administered. After a digital rectal examination of the ano-rectum, the video colonoscope was inserted into the rectum and advanced through the colon to the cecum/TI. The colonoscope was slowly withdrawn in a retrograde panoramic fashion and the colon mucosa was carefully examined including a retroflexed view of the rectum. Findings and interventions are described below. Procedure Difficulty: easy Findings: Terminal Ileum-normal Cecum: 5-7 mm sessile polyp removed with cold forceps Ascending Colon: normal Transverse Colon -normal Descending Colon:normal Sigmoid Colon: normal Rectum: Retroflexion with small internal hemorrhoids, grade II Anorectum - internal hemorrhoids seen on forward view Colon preparation: [place] Bowel Preparation Scale Right colon; 3 Transverse colon: 3 Left colon; 3 (0 = Unprepared colon segment with mucosa not seen due to solid stool that cannot be cleared. 1 = Portion of mucosa of the colon segment seen, but other areas of the colon segment not well seen due to staining, residual stool and/or opaque liquid. 2 = Minor amount of residual staining, small fragments of stool and/or opaque liquid, but mucosa of colon segment seen well. 3 = Entire mucosa of colon segment seen well with no residual staining, small fragments of stool or opaque liquid) Impression and Post Procedure Diagnosis: polyp internal hemorrhoids Plan: High fiber diet leaflet Avoid straining at stool, epsom salts and sitz bath, anusol supps or cream Repeat Colonoscopy in 5-7 years if adenoamtous polyp, 10 yrs if benign or earlier if clinically indicated Above findings were reviewed with the patient and relevant handouts were provided if indicated.
[2022-04-21 12:20] VITALS: BP 110/67; PULSE 90; RESP 16; TEMP 37.6; O2SAT 95
[2022-04-21 12:35] VITALS: BP 130/88; PULSE 75; RESP 18; TEMP 36.4; O2SAT 95
== END 2022-04-21 13:22 ==
LOC: HO.SSS 10:33
PROVIDERS: PCP Internal Medicine; Visit Provider Internal Medicine Gastroenterology
PROC: 0DJD8ZZ Inspection of Lower Intestinal Tract, Via Natural or Artificial Opening Endoscopic (ICD-10-PCS; CPT 45378; principal; 2022-04-21 12:10)
DX: Z12.11 Encounter for screening for malignant neoplasm of colon (principal); D12.0 Benign neoplasm of cecum; K64.1 Second degree hemorrhoids; K64.4 Residual hemorrhoidal skin tags; G47.33 Obstructive sleep apnea (adult) (pediatric); E66.01 Morbid (severe) obesity due to excess calories; Z68.41 Body mass index [BMI] 40.0-44.9, adult; M51.36 Other intervertebral disc degeneration, lumbar region; M10.9 Gout, unspecified; F17.210 Nicotine dependence, cigarettes, uncomplicated
CPT/HCPCS: 45380; 88305

== ENCOUNTER → 2022-08-30 10:15 | Outpatient (BNVA) | payer SELFPAY | PROVIDERS: PCP Internal Medicine; Visit Provider Physician Assistant Medical | DX: Z02.79 Encounter for issue of other medical certificate (principal) ==

== ENCOUNTER 2022-12-03 12:26 | Outpatient (REF) | payer OTHER, SELFPAY ==
[2022-12-03 12:54] LABS: MANUAL DIFF FLAG NO
[2022-12-03 13:22] LABS: Basophils Percent Auto 0.4 % (0-2); Eosinophils Absolute Auto 0.2 X10*3/uL (0.0-0.4); Eosinophils Percent Auto 2.4 % (0-4); Hematocrit 45.6 % (42.0-52.0); Hemoglobin 15.5 g/dl (14.0-18.0); Imm Gran Abs Auto 0.02 X10*3/uL (0.00-0.03); Imm Gran Pct Auto 0.3 % (0.0-0.4); Lymphocytes Absolute Auto 1.6 X10*3/uL (1.2-4.9); Lymphocytes Percent Auto 21.7 % (20-40); Mean Corpuscular Hemoglobin 32.1 pg (27.0-33.0); Mean Corpuscular Volume 94.4 fL (80.0-98.0); Mean Platelet Volume 10.2 fL (9.4-12.4); Monocytes Absolute Auto 0.4 X10*3/uL (0.1-1.2); Neutrophils Percent Auto 70.2 % (45-73); Platelet Count 190 X10*3/uL (160-400); Red Blood Count 4.83 X10*6/uL (4.60-5.80); Red Cell Distribution Width 13.7 % (11.0-16.0); White Blood Count 7.1 X10*3/uL (4.8-10.8)
[2022-12-03 13:29] LABS: INTERNATIONAL NORM RATIO 0.9 (0.9-1.1)
[2022-12-03 13:31] LABS: Partial Thromboplastin Time 30.8 SEC (26.0-36.4)
[2022-12-03 14:54] LABS: Anion Gap 14 (12-20); Blood Urea Nitrogen 16 mg/dL (9-16); Calcium 10.3 mg/dL (8.4-10.2); Carbon Dioxide 26 mmol/L (22-29); Chloride 102 mmol/L (96-108); Estimated Glomerular Filt Rate > 60; Glucose Random 170 mg/dL (60-115); Potassium 4.2 mmol/L (3.3-5.1); Sodium 138 mmol/L (135-145)
== END 2022-12-03 12:27 | disposition home or self-care (01) ==
LOC: HO.LAB 12:26
PROVIDERS: Visit Provider Orthopaedic Surgery Orthopaedic Surgery of the Spine
DX: Z01.818 Encounter for other preprocedural examination (principal); Z13.89 Encounter for screening for other disorder
CPT/HCPCS: 36415; 80048; 85025; 85610; 85730

== ENCOUNTER 2023-07-14 13:09 | Emergency (ER) | payer OTHER, SELFPAY ==
[2023-07-14 13:52] VITALS: BP 149/91; PULSE 85; RESP 16; TEMP 36.8; O2SAT 98; BMI 43.5
--- NOTE | 2023-07-14 14:00 | ED_ITS ---
HPI - Back Pain/Injury General Chief Complaint: Back Pain/Injury Stated Complaint: l sided back pain quest pulled something Time Seen by Provider: 07/14/23 15:06 Source: patient Mode of arrival: ambulatory Limitations: no limitations History of Present Illness HPI Narrative: 48 yo male with history of morbid obesity, chronic back pain s/p surgery x3 who is presenting for evaluation of left lower back pain that started last night when he went to get up off of the couch. He states the pain is intermittent and worse with movement. No radiation of the pain and it is sharp at times, takes his breath away. Minimal improvement with advil. no urinary symptoms, N/V/D, or fevers. MD elicited complaint: back pain Onset (ago): day(s) (1) Timing: intermittent Severity: moderate Quality: sharp Location: left lower back Radiation: none Exacerbating factors: movement Relieving factors: immobilization Context: turning/twisting Treatments prior to arrival: NSAIDS Work related injury: No Related Data Home Medications Medication Instructions Recorded Confirmed allopurinol 100 mg tablet 1 tab PO DAILY 04/14/22 04/14/22 allopurinol 300 mg tablet 1 tab PO DAILY 04/14/22 04/14/22 Previous Rx's Medication Instructions Recorded acetaminophen 500 mg tablet 500 mg PO Q6H PRN fever or pain 03/12/22 (Tylenol Extra Strength) #14 tabs cyclobenzaprine 10 mg tablet 10 mg PO TID PRN muscle spasm #7 07/14/23 tabs ibuprofen 600 mg tablet 600 mg PO Q8H PRN pain #14 tabs 07/14/23 lidocaine 5 % topical patch 1 patch topical DAILY #15 ea 07/14/23 Allergies Allergy/AdvReac Type Severity Reaction Status Date / Time No Known Allergies Allergy Verified 04/21/22 10:44 [No Known Allergies*] Review of Systems Review of Systems: Yes all other systems are reviewed and are negative [facility] Past Medical History Medical History (Updated 07/14/23 @ 17:01 by NEFTALY Camacho) Back pain Obese Lumbar degenerative disc disease Sleep apnea Gout Surgical History History of back surgery Hx of spinal fusion Hx of umbilical hernia repair Social History Social History Patient Tobacco Use Status: Current everyday Tobacco user Tobacco use type: Cigarette Cigarettes Per Day: 10 Advance Directives: No Advance Directives Information Provided: No Physical Exam Vital Signs: Vital Signs: Last Vital Signs Temp 98.3 F 07/14/23 13:52 Pulse 85 07/14/23 13:52 Resp 16 07/14/23 13:52 BP 149/91 H 07/14/23 13:52 Pulse Ox 98 07/14/23 13:52 O2 Del Method Room Air 07/14/23 13:52 BMI result Body Mass Index 43.5 Appearance: Alert. Oriented X3. No acute distress. HEENT: normal inspection CVS: Normal heart rate and rhythm. Pulses normal. Respiratory: No respiratory distress. Skin: Skin warm and dry. Normal skin color. Normal skin turgor. No rashes. Back: well healed surgical scar in lumbar region. left upper lumbar area with mild soft tissue tenderness. normal spinal flexion and rotation. Extremities: normal inspection, normal ROM Neuro: Oriented X 3. No motor deficit. No sensory deficit. Steady gait Course Course Course Narrative: RME 48 year old male presents w/ L sided back pain lower atraumatic. No red flag sx. No trauma Plan- emc Medications Administered Discontinued Medications Generic Name Dose Route Start Last Admin Trade Name Freq PRN Reason Stop Dose Admin Acetaminophen 975 mg 07/14/23 16:25 07/14/23 16:34 Acetaminophen 325 Mg Tablet PO 07/14/23 16:26 975 mg ONCE ONE Administration Ketorolac Tromethamine 30 mg 07/14/23 16:25 07/14/23 16:34 Ketorolac Tromethamine 30 Mg/Ml Vial IM 07/14/23 16:26 30 mg ONCE ONE Administration Lidocaine 1 patch 07/14/23 16:25 07/14/23 16:33 Lidocaine 4 % Patch Adh..Patch TRANSDERMA 07/14/23 16:26 1 patch ONCE ONE Administration Protocol Medical Decision Making Medical Decision Making MDM Narrative: 48 yo male presenting with atraumatic left lower back pain that started yesterday. No red flag symptoms of low back pain. Exam is reassuring. No midline tenderness, will defer x-ray today. Urinalysis does not show any blood. Low suspicion for kidney stone. Patient given Toradol with improvement in the pain. Stable for discharge home with conservative management and outpatient follow-up PRN. Patient is stable for discharge all questions were answered. Differential Diagnosis Differential Diagnoses: The differential diagnosis associated with the presentation includes Inflammatory disorders, malignancy, trauma, osteoporosis, nerve root compression, radiculopathy, plexopathy, degenerative disc disease, disc herniation, spinal stenosis, sacroiliac joint dysfunction, facet joint injury, and less likely infection?like abscess or diskitis Lab Data MDM Lab Attestation statement: I reviewed the patient's lab results. Labs: Lab Results 07/14/23 Range/Units 16:40 Urine Color Dark Yellow Urine Appearance Clear Urine pH 6.0 (5.0-9.0) Ur Specific [place] >= 1.030 H (1.005-1.025) Urine Protein Trace (Neg-Trace) mg/dL Urine Glucose (UA) Negative (Negative) mg/dL Urine Ketones 15 (Negative) mg/dL Urine Blood Negative (Negative) Urine Nitrite Negative (Negative) Ur Leukocyte Esterase Trace H (Negative) Urine RBC 0-2 (0-2) /HPF Urine WBC 0-5 (0-5) /HPF Ur Squamous Epith Cells 0-2 (0-2) /HPF Urine Bacteria None Seen (None Seen) Hyaline Casts 0-2 (0-2) /LPF External Record Review External record reviewed: Outpatient record and Prior outpatient labs Tests considered The following testing was considered but not selected: Lumbar spine x-ray considered Prescription Management I considered prescription management with: Pain Medication Critical Care Time Critical Care Time Critical Care Time: No Discharge Plan Discharge Clinical Impression: Low back pain Qualifiers: Chronicity: acute Back pain laterality: left Sciatica presence: without sciatica Qualified Code(s): M54.50 - Low back pain, unspecified Patient Disposition: Home, Self-Care Instructions: Acute Low Back Pain (ED) Additional Instructions: Your urine test was normal Your pain is most likely due to muscle strain and spasm. No bending, lifting or twisting. Use ice several times per day for 20 minutes at a time for the next 48 hours and then change to heat. Take medications as prescribed to help with pain and discomfort. Follow up with your Primary Care Doctor as needed. If your pain worsens, if you develop new numbness, tingling, weakness, loss of function or incontinence call 911 or come back to the ER right away for evaluation. Prescriptions: New ibuprofen 600 mg tablet 600 mg PO Q8H PRN (Reason: pain) Qty: 14 0RF lidocaine 5 % adhesive patch,medicated 1 patch topical DAILY Qty: 15 0RF Rx Instructions: leave on most painful area for up to 12 hrs cyclobenzaprine 10 mg tablet 10 mg PO TID PRN (Reason: muscle spasm) Qty: 7 0RF No Action acetaminophen [Tylenol Extra Strength] 500 mg tablet 500 mg PO Q6H PRN (Reason: fever or pain) Qty: 14 0RF allopurinol 100 mg tablet 1 tab PO DAILY allopurinol 300 mg tablet 1 tab PO DAILY
[2023-07-14] MEDS: Lidocaine 4 % Patch ADH..PATCH 1 PATCH TRANSDERMA (16:33)
[2023-07-14] MEDS: Ketorolac Tromethamine 30 MG/ML VIAL IM (16:34)
[2023-07-14] MEDS: Acetaminophen 325 MG TABLET 975 MG PO (16:34)
[2023-07-14 16:47] LABS: Appearance Urine Clear; Color Urine Dark Yellow; Glucose Urine UA Negative (Negative); Leukocyte Esterase Urine Trace (Negative); Nitrite Urine Negative (Negative); Specific Gravity - Urine >= 1.030 (1.005-1.025); UMIC TRIGGER UACC YES; Urine Blood Negative (Negative); Urine Ketones 15 mg/dL (Negative); Urine Protein Trace mg/dL (Neg-Trace)
[2023-07-14 16:49] LABS: Bacteria Urine None Seen (None Seen); Hyaline Casts Urine 0-2 /LPF (0-2); RBC Urine 0-2 /HPF (0-2); Squamous Epithelial Cell Urine 0-2 /HPF (0-2); WBC Urine 0-5 /HPF (0-5)
[2023-07-14 17:18] VITALS: BP 138/84; PULSE 86; RESP 18; TEMP 36.7; O2SAT 98
== END 2023-07-14 17:20 | disposition home or self-care (01) ==
PROVIDERS: Physician Assistant; Emergency Provider Emergency Medicine; PCP Internal Medicine
DX: M54.50 Low back pain, unspecified (principal); F17.210 Nicotine dependence, cigarettes, uncomplicated; Z71.6 Tobacco abuse counseling
CPT/HCPCS: 81001; 96372; 99283; 99284; J1885

== ENCOUNTER → 2023-07-20 11:03 | Outpatient (BNVA) | payer SELFPAY | PROVIDERS: PCP Internal Medicine; Visit Provider Physician Assistant Medical | DX: Z02.79 Encounter for issue of other medical certificate (principal) ==

== ENCOUNTER → 2024-07-16 14:51 | Outpatient (BNVA) | payer SELFPAY | PROVIDERS: PCP Internal Medicine; Visit Provider Physician Assistant Medical | DX: Z02.79 Encounter for issue of other medical certificate (principal) ==

== ENCOUNTER 2024-10-25 14:50 | Emergency (ER) | payer BC, OTHER, SELFPAY ==
--- NOTE | ~2024-10-25 | US_ITS ---
EXAMINATION: US TRIPLEX LOWER EXTREMITY, RIGHT CLINICAL INFORMATION: Right lower extremity edema COMPARISON: None available. TECHNIQUE: Color-flow triplex imaging with spectral analysis and compression Doppler were performed on the right lower extremity. FINDINGS: Respiratory variation, normal compression and augmented flow are noted throughout the right lower extremity. The visualized common femoral vein, superficial femoral vein, profunda femoral vein, popliteal vein and midcalf peroneal and posterior tibial venous segments show no evidence of deep venous thrombosis. Popliteal fossa cyst measures 4 x 1 x 3 cm. US/US venous duplex LE RT IMPRESSION: No evidence of deep venous thrombosis involving the right lower extremity. Arshad's cyst Electronically signed by: Jamison Fernandez MD 10/25/2024 04:12 PM EDT
--- NOTE | ~2024-10-25 | XR_ITS ---
EXAMINATION: XR KNEE, RIGHT CLINICAL INFORMATION: Right knee pain COMPARISON: None available. TECHNIQUE: Four views of the right knee. FINDINGS: Small volume of joint fluid is visible in the suprapatellar pouch. There is minimal narrowing of the medial joint space. Minimal marginal osteophyte formation is present along the medial tibial joint line. No fracture is evident. XR/XR knee RT 4V IMPRESSION: Mild medial compartment osteoarthritis. Electronically signed by: Jamison Fernandez MD 10/25/2024 03:32 PM EDT
[2024-10-25 15:08] VITALS: BP 113/83; PULSE 91; RESP 16; TEMP 36.7; O2SAT 97; BMI 39.1
--- NOTE | 2024-10-25 15:15 | ED_ITS ---
HPI - General Adult General Chief complaint: Extremity Injury, Lower Stated complaint: R knee pain Time Seen by Provider: 10/25/24 16:02 History of Present Illness ED Provider: Anjum Davis MD HPI narrative: 49-year-old male with several days of right knee pain he has known arthritis and previously has received intra-articular injections by Dr. Galeano at [facility]. The patient has pain mainly on the right anteromedial aspect of the knee without direct blow. 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 No twisting or other mechanism injury denies redness swelling of the joint. He has some pain posteriorly of the right knee. Left knee is not bothering him at this time. No swelling of the legs or other skin changes Related Data Home Medications ?Medication ?Instructions ?Recorded ?Confirmed allopurinol 100 mg tablet 1 tab PO DAILY 04/14/2203/26 allopurinol 300 mg tablet 1 tab PO DAILY 04/14/2203/26 Previous Rx's ?Medication ?Instructions ?Recorded acetaminophen 500 mg tablet 500 mg PO Q6H PRN fever or pain 03/12/22 (Tylenol Extra Strength) #14 tabs cyclobenzaprine 10 mg tablet 10 mg PO TID PRN muscle s pasm #7 07/14/23 tabs ibuprofen 600 mg tablet 600 mg PO Q8H PRN pain #14 t abs 07/14/23 lidocaine 5 % topical patch 1 patch topical DAILY #15 ea 07/14/23 diclofenac sodium 1 % topical gel 4 g topical QID PRN pain (scale 10/25/24 (Voltaren Arthritis Pain) score 4-6) #100 grams Allergies Allergy/AdvReac Type Severity Reaction Status Date / Time No Known Allergies (No Known Allergy Verified 10/25/24 15:14 Allergies*) COUNTS INCLUDE 234 BEDS AT THE [facility] Past Medical History Medical History (Updated 10/26/24 @ 00:01 by Sylvester Mata) Back pain Obese Lumbar degenerative disc disease Sleep apnea Gout Surgical History History of back surgery Hx of spinal fusion Hx of umbilical hernia repair Social History Social History Patient Tobacco Use Status: Current everyday Tobacco user Tobacco use type: Cigarette Cigarettes Per Day: 10 Advance Directives: No Advance Directives Information Provided: Yes Do you have a plan to hurt others: No Plan Physical Exam ED Vital Signs: Vital Signs - 24 hr 10/25/24 15:08 10/25/24 17:13 Temperature 98.0 F 98.0 F Pulse Rate 91 91 Respiratory Rate 16 16 Blood Pressure 113/83 113/83 Pulse Oximetry 97 97 Oxygen Delivery Method Room Air Room Air BMI result Body Mass Index 39.1 Const Other: GENERAL: Well appearing. No apparent distress. Alert. HEAD/NECK: No visual trauma. EYES: Normal to inspection. No conjunctival erythema. No discharge. ENMT: Hearing grossly normal. External nose normal. RESPIRATORY: Respiratory effort normal. CARDIOVASCULAR: Additional details (Grossly well perfused). SKIN: No jaundice. NEUROLOGICAL: Alert. Moving all extremities x4. Additional details (No gross motor deficits. Normal tone. ). PSYCHIATRIC: Alert. Appearance appropriate for situation. MSK: Right knee without palpable effusion erythema or swelling. He is tender anteromedially. The knee is grossly stable and he can bear weight on it. Mild tenderness with slight prominence of the popliteal region. Pulses intact. Soft compartments throughout the lower extremity. Course Course Course Narrative: RME: 49-year-old male history of bilateral knee arthritis presents to ED for right knee pain and right leg swelling without any trauma. Patient is sent to the ED for evaluation. Patient denies any fever chills chest pain or shortness of breath. Labs x-ray ultrasound ordered. Medications Administered Discontinued Medications Generic Name Dose Route Start Last Admin Trade Name Freq PRN Reason Stop Dose Admin Dexamethasone Sodium Phosphate 10 mg 10/25/24 16:57 10/25/24 17:06 Dexamethasone Sod Phosphate 10 Mg/Ml Vial IM 10/25/24 16:58 10 mg ONCE ONE Administration Ketorolac Tromethamine 30 mg 10/25/24 16:57 10/25/24 17:06 Ketorolac Tromethamine 30 Mg/Ml Vial IM 10/25/24 16:58 30 mg ONCE ONE Administration Medical Decision Making Medical Decision Making MDM Narrative: Medical Decision Makin-year-old male with known arthritis. Grossly stable right knee with no bony injuries on x-ray. Known medial compartment arthritis he also has a meniscal injury that is known. 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 This is small and is unlikely to be infected he has asked me if this is able to be drained here I will defer this to his orthopedic doctor. Multimodal analgesia here patient requesting parental medications we gave Decadron, Toradol. Close ortho follow up. Preliminary Favored Differential Diagnosis: DJD, internal derangement of the knee, popliteal/Arshad cyst among additional considered etiologies Testing Interpreted Independently: Not Applicable Radiology or Lab testing Results Reviewed: X-ray radiology report reviewed with no bony fracture, arthritis present. Ultrasound report reviewed. Consults: Not Applicable Independent Historians/External Chart Reviews: Not Applicable Social Determinants of Health Impacting MDM/Planning: Not Applicable Lab Data 10/25/24 15:29 10/25/24 15:29 Labs: Lab Results 10/25/24 Range/Units 15:29 WBC 9.7 (4.8-10.8) X10*3/uL RBC 4.64 (4.60-5.80) X10*6/uL Hgb 14.8 (14.0-18.0) g/dl Hct 43.9 (42.0-52.0) % MCV 94.6 (80.0-98.0) fL MCH 31.9 (27.0-33.0) pg MCHC 33.7 (31.0-36.0) g/dl RDW 14.2 (11.0-16.0) % Plt Count 201 (160-400) X10*3/uL MPV 9.8 (9.4-12.4) fL Immature Gran % (Auto) 0.3 (0.0-0.4) % Neut % (Auto) 70.0 (45-73) % Lymph % (Auto) 18.5 L (20-40) % [place] % (Auto) 9.6 (2-11) % Eos % (Auto) 1.3 (0-4) % Baso % (Auto) 0.3 (0-2) % Lymph # (Auto) 1.8 (1.2-4.9) X10*3/uL [place] # (Auto) 0.9 (0.1-1.2) X10*3/uL Eos # (Auto) 0.1 (0.0-0.4) X10*3/uL Baso # (Auto) 0.0 (0.0-0.2) X10*3/uL Abs Immat Gran (auto) 0.03 (0.00-0.03) X10*3/uL Absolute Neuts (auto) 6.7 (2.0-8.3) x10*3/uL Absolute Nucleated RBC 0.000 (0.0-0.012) X10*3/uL Nucleated RBC % (auto) 0.0 (0.0-0.2) /100WBC PT 10.6 L (10.9-12.4) SEC INR 0.9 (0.9-1.1) APTT 32.6 (26.0-36.8) SEC Sodium 140 (135-145) mmol/L Potassium 4.3 (3.3-5.1) mmol/L Chloride 106 (96-108) mmol/L Carbon Dioxide 25 (22-29) mmol/L Anion Gap 13 (12-20) BUN 20 H (9-16) mg/dL Creatinine 1.15 (0.5-1.4) mg/dL Estim Creat Clear Calc 120.0 Estimated GFR > 60 Random Glucose 99 (60-115) mg/dL Calcium 9.6 D (8.4-10.2) mg/dL Total Bilirubin 0.5 (0.0-1.0) mg/dL AST 31 (5-37) U/L ALT 39 (0-40) U/L Alkaline Phosphatase 61 (39-117) U/L Total Protein 7.3 (6.5-8.0) g/dL Albumin 4.7 (3.5-5.0) g/dL Discharge Plan Discharge Clinical Impression: Arshad cyst Patient Disposition: Home, Self-Care Instructions: Arshad Cyst (ED) Additional Instructions: Your Xray should arthritis changes. Your ultrasound excluded a clot but found a bakers cyst behind your knee. you can follow up with orthopedics for this Prescriptions: New diclofenac sodium [Voltaren Arthritis Pain] 1 % gel 4 g topical QID PRN (Reason: pain (scale score 4-6)) Qty: 100 0RF Rx Instructions: apply to single knee, ankle, foot; for foot includes sole/toes/top of foot No Action acetaminophen [Tylenol Extra Strength] 500 mg tablet 500 mg PO Q6H PRN (Reason: fever or pain) Qty: 14 0RF allopurinol 100 mg tablet 1 tab PO DAILY allopurinol 300 mg tablet 1 tab PO DAILY ibuprofen 600 mg tablet 600 mg PO Q8H PRN (Reason: pain) Qty: 14 0RF lidocaine 5 % adhesive patch,medicated 1 patch topical DAILY Qty: 15 0RF Rx Instructions: leave on most painful area for up to 12 hrs cyclobenzaprine 10 mg tablet 10 mg PO TID PRN (Reason: muscle spasm) Qty: 7 0RF Referrals: [facility] [place] Surgeons [Provider Group, Orthopedics] Referral Note: Call for follow up Interventions: ED Discharge Assessment Last Done: 10/25/24 17:13 Discharge Date/Time: 10/25/24 17:13 Print Language: Georgian
[2024-10-25 15:38] LABS: MANUAL DIFF FLAG NO
[2024-10-25 15:41] LABS: Hematocrit 43.9 % (42.0-52.0); Hemoglobin 14.8 g/dl (14.0-18.0); Imm Gran Abs Auto 0.03 X10*3/uL (0.00-0.03); Imm Gran Pct Auto 0.3 % (0.0-0.4); Lymphocytes Absolute Auto 1.8 X10*3/uL (1.2-4.9); Mean Corpuscular HGB Conc 33.7 g/dl (31.0-36.0); Mean Corpuscular Hemoglobin 31.9 pg (27.0-33.0); Mean Corpuscular Volume 94.6 fL (80.0-98.0); NRBC Abs Auto 0.000 X10*3/uL (0.0-0.012); NRBC Pct Auto 0.0 /100WBC (0.0-0.2); Platelet Count 201 X10*3/uL (160-400); Red Blood Count 4.64 X10*6/uL (4.60-5.80); White Blood Count 9.7 X10*3/uL (4.8-10.8)
[2024-10-25 15:46] LABS: INTERNATIONAL NORM RATIO 0.9 (0.9-1.1); Prothrombin Time 10.6 SEC (10.9-12.4)
[2024-10-25 15:49] LABS: Partial Thromboplastin Time 32.6 SEC (26.0-36.8)
[2024-10-25 15:55] LABS: Alanine Aminotransferase 39 U/L (0-40); Albumin Level 4.7 g/dL (3.5-5.0); Alkaline Phosphatase 61 U/L (39-117); Anion Gap 13 (12-20); Aspartate Amino Transferase 31 U/L (5-37); Blood Urea Nitrogen 20 mg/dL (9-16); Calcium 9.6 mg/dL (8.4-10.2); Carbon Dioxide 25 mmol/L (22-29); Chloride 106 mmol/L (96-108); Creatinine Clr Calc Pharmacy 120.0; Estimated Glomerular Filt Rate > 60; Potassium 4.3 mmol/L (3.3-5.1); Sodium 140 mmol/L (135-145); Total Protein 7.3 g/dL (6.5-8.0)
[2024-10-25 17:13] VITALS: BP 113/83; PULSE 91; RESP 16; TEMP 36.7; O2SAT 97
== END 2024-10-25 17:13 | disposition home or self-care (01) ==
PROVIDERS: Physician Assistant; Emergency Provider Emergency Medicine; PCP Internal Medicine
DX: M71.21 Synovial cyst of popliteal space [Baker], right knee (principal); M25.561 Pain in right knee; R60.0 Localized edema; Z79.899 Other long term (current) drug therapy; Z51.81 Encounter for therapeutic drug level monitoring
CPT/HCPCS: 36415; 73564; 80053; 85025; 85610; 85730; 93971; 96372; 99284; J1100; J1885

== ENCOUNTER → 2024-10-25 15:13 | Outpatient (BNV) | payer SELFPAY | PROVIDERS: Emergency Provider Emergency Medicine; PCP Internal Medicine; Visit Provider Radiology Diagnostic Radiology | DX: R22.41 Localized swelling, mass and lump, right lower limb (principal); M25.561 Pain in right knee | CPT/HCPCS: 73564; 93971 ==

== ENCOUNTER 2024-12-15 20:53 | Emergency (ER) | payer BC, OTHER, SELFPAY ==
[2024-12-15 20:57] VITALS: BP 152/89; PULSE 91; RESP 20; TEMP 36.6; O2SAT 97; BMI 39.4
[2024-12-15] MEDS: Lidocaine HCl 2 % MPF 5 ML VIAL 15 ML INFILTRATI (22:49)
--- NOTE | 2024-12-15 23:42 | ED_ITS ---
HPI - Wound/Laceration General Chief Complaint: Wound/Laceration Stated Complaint: rt hand ring finger wound Time Seen by Provider: 12/15/24 22:10 Source: patient Mode of arrival: ambulatory Limitations: no limitations History of Present Illness ED Provider: Dr. Sabine Horan HPI narrative: Patient comes to the emergency room complaining of a laceration to the ring finger of the right hand. Patient states that he was cooking dinner and he accidentally hit his finger with a knife. Patient denies any other injuries, patient is not on blood thinners. Patient states that he is not up-to-date with his Tdap Related Data Home Medications ?Medication ?Instructions ?Recorded ?Confirmed allopurinol 100 mg tablet 1 tab PO DAILY 04/14/2203/26 allopurinol 300 mg tablet 1 tab PO DAILY 04/14/2203/26 Previous Rx's ?Medication ?Instructions ?Recorded acetaminophen 500 mg tablet 500 mg PO Q6H PRN fever or pain 03/12/22 (Tylenol Extra Strength) #14 tabs cyclobenzaprine 10 mg tablet 10 mg PO TID PRN muscle s pasm #7 07/14/23 tabs ibuprofen 600 mg tablet 600 mg PO Q8H PRN pain #14 t abs 07/14/23 lidocaine 5 % topical patch 1 patch topical DAILY #15 ea 07/14/23 diclofenac sodium 1 % topical gel 4 g topical QID PRN pain (scale 10/25/24 (Voltaren Arthritis Pain) score 4-6) #100 grams acetaminophen 650 mg 650 mg PO Q12H PRN pain #20 tabs 12/15/24 tablet,extended release ibuprofen 800 mg tablet 800 mg PO Q8H PRN pain #20 t abs 12/15/24 Allergies Allergy/AdvReac Type Severity Reaction Status Date / Time No Known Allergies (No Known Allergy Verified 12/15/24 20:58 Allergies*) Review of Systems Review of Systems: Constitutional : No Weight loss, No Fever, No Chills, No Night Sweats, No Fatigue, No Malaise ENT/Mouth : No Hearing loss, No Ear Pain, No Nasal Congestion, No Sinus Pain, No Hoarseness, No sore throat, No Rhinorrhea, No Swallowing Difficulty Eyes: No Eye Pain, No Swelling, No Redness, No Foreign Body, No Discharge, No Vision Changes Cardiovascular : No Chest Pain, No SOB, No Dyspnea on Exertion, No Orthopnea, No Edema, No Palpitations Respiratory : No Cough, No Sputum, No Wheezing, No Smoke Exposure, No Dyspnea Gastrointestinal : No Nausea, No Vomiting, No Diarrhea, No Constipation, No abdominal Pain, No Hematochezia, No Melena Genitourinary : no irregular bleeding, No Dysuria, No Urinary Frequency, No Hematuria, No Urinary Incontinence, No Urgency, No Flank Pain, No Urinary Flow Changes, No Hesitancy Musculoskeletal : No joint pain, No Myalgias, No Joint Swelling Skin : Laceration to the tip of the finger going through, right hand Neuro : No Weakness, No Numbness, No Paresthesias, No Loss of Consciousness, No Dizziness, No Headache Psych : No Anxiety/Panic, No Depression, No SI/HI/AH/VH, No Social Issues, Heme/Lymph: No Bruising, No Bleeding,No Lymphadenopathy Endocrine : No Polyuria, No Polydipsia, No Temperature Intolerance PMFSH Past Medical History Medical History Back pain Obese Lumbar degenerative disc disease Sleep apnea Gout Surgical History History of back surgery Hx of spinal fusion Hx of umbilical hernia repair Social History Social History Patient Tobacco Use Status: Current everyday Tobacco user Tobacco use type: Cigarette Cigarettes Per Day: 10 Advance Directives: No Advance Directives Information Provided: No Physical Exam Exam: Exam: Appearance: Alert. Oriented X3. No acute distress. Eyes: Pupils equal, round and reactive to light. ENT: Pharynx normal. Neck: Normal inspection. Neck supple. No lymph nodes noted. No crepitus CVS: Normal heart rate and rhythm. Pulses normal. Normal S1 and S2 Respiratory: No respiratory distress. Breath sounds normal. No Wheezing. No rales Abdomen: Soft and nontender. No rigidity. No distention. Skin: Skin warm and dry. Normal skin color. Normal skin turgor. Extremities: No lower extremity edema. No Lacerations. No Rash., patient's right hand, 4th finger, patient has a near complete avulsion of the fingertip, the laceration goes through the medial aspect of the fingernail. Patient is able to flex and extend the finger without restrictions of range of motion. The injury was visualized under a bloodless field. No ligaments/tendons or bone visualized Neuro: Oriented X 3. No motor deficit. No sensory deficit. Moving all extremities. No slurred speech. CN 2 through 12 grossly intact Psych: calm, cooperative, normal affect Vital Signs: Vital Signs: Last Vital Signs Temp 97.8 F 12/15/24 20:57 Pulse 91 12/15/24 20:57 Resp 20 12/15/24 20:57 BP 152/89 H 12/15/24 20:57 Pulse Ox 97 12/15/24 20:57 O2 Del Method Room Air 12/15/24 20:57 BMI result Body Mass Index 39.4 Medications Administered Discontinued Medications Generic Name Dose Route Start Last Admin Trade Name Freq PRN Reason Stop Dose Admin Lidocaine HCl 15 ml 12/15/24 22:39 12/15/24 22:49 Lidocaine Hcl 2 % Mpf 5 Ml Vial INFILTRATI 12/15/24 22:40 15 ml ONCE ONE Administration Medical Decision Making Medical Decision Making [facility] Narrative: Patient was given 10 mL of 2% lidocaine without epinephrine I attempted to reattached the avulsed flap with the fingernail. I discussed with the patient that it is likely that the patient may lose the tip of the fingertip along with the tip of the finger nail. However, patient should have normal function of his finger. Differential Diagnosis Differential Diagnoses: The differential diagnosis associated with the presentation includes (Laceration, avulsion, puncture wound) Critical Care Time Critical Care Time Critical Care Time: Yes Total Critical Care Time: 40 Attestation: I have personally provided critical care time. Time includes review of lab data, radiology results, discussion with consultants, and monitoring for potential decompensation. Intervention performed as documented. Discharge Plan Discharge Clinical Impression: Laceration of finger Patient Disposition: Home, Self-Care Instructions: Finger Laceration (ED), Care For Your Absorbable Stitches (ED) Additional Instructions: The tip of your fingertip and the corner of a fever finger nail may fall off. Please follow-up with your primary care physician tomorrow. If you have any worsening or new symptoms, please return to the emergency room or call 911 Your stitches need to be removed in 7-10 days. If you see any signs of infection such as pus drainage, pain out of proportion, redness, please return to the emergency room. Prescriptions: New ibuprofen 800 mg tablet 800 mg PO Q8H PRN (Reason: pain) Qty: 20 0RF acetaminophen 650 mg tablet extended release 650 mg PO Q12H PRN (Reason: pain) Qty: 20 0RF No Action acetaminophen [Tylenol Extra Strength] 500 mg tablet 500 mg PO Q6H PRN (Reason: fever or pain) Qty: 14 0RF allopurinol 100 mg tablet 1 tab PO DAILY allopurinol 300 mg tablet 1 tab PO DAILY diclofenac sodium [Voltaren Arthritis Pain] 1 % gel 4 g topical QID PRN (Reason: pain (scale score 4-6)) Qty: 100 0RF Rx Instructions: apply to single knee, ankle, foot; for foot includes sole/toes/top of foot ibuprofen 600 mg tablet 600 mg PO Q8H PRN (Reason: pain) Qty: 14 0RF lidocaine 5 % adhesive patch,medicated 1 patch topical DAILY Qty: 15 0RF Rx Instructions: leave on most painful area for up to 12 hrs cyclobenzaprine 10 mg tablet 10 mg PO TID PRN (Reason: muscle spasm) Qty: 7 0RF Stand Alone Forms: Work/School Release Print Language: Tajik
[2024-12-15] MEDS: Diphth,Pertus(ACell),Tet Adult 0.5 ML SYRINGE IM (23:48)
[2024-12-15 23:55] VITALS: BP 152/89; PULSE 91; RESP 20; TEMP 36.6; O2SAT 97
== END 2024-12-15 23:55 | disposition home or self-care (01) ==
PROVIDERS: Emergency Provider Emergency Medicine; PCP Internal Medicine
DX: S61.214A Laceration without foreign body of right ring finger without damage to nail, initial encounter (principal); W26.0XXA Contact with knife, initial encounter; Y93.G3 Activity, cooking and baking; Y92.9 Unspecified place or not applicable; Y99.8 Other external cause status; Z79.899 Other long term (current) drug therapy; F17.210 Nicotine dependence, cigarettes, uncomplicated; Z23 Encounter for immunization
CPT/HCPCS: 12041; 90471; 90715; 99283; 99284; J2003